=== PATIENT | male | born 1930 | race Caucasian/White ===

== ENCOUNTER 2017-11-07 11:41 | Emergency (ER) | payer MEDICARE ==
--- NOTE | 2017-11-07 12:06 | ED.PDOC ---
History of Present Illness - General Chief Complaint: Trauma Stated Complaint: left hip pain Time Seen by Provider: 11/07/17 12:02 Source: patient Exam Limitations: no limitations - History of Present Illness Timing/Duration: other - 11 days ago Improving Factors: immobilization Worsening Factors: movement Associated Symptoms: denies symptoms Allergies/Adverse Reactions: Allergies Phenobarbital Allergy (Verified 11/07/17 12:22) Review of Systems - Review of Systems Constitutional: States: no symptoms reported EENTM: Denies: nose congestion, throat pain Respiratory: Denies: cough, short of breath Cardiology: Denies: chest pain, edema Gastrointestinal/Abdominal: Denies: abdominal pain, nausea Genitourinary: Denies: dysuria, frequency Musculoskeletal: States: joint pain - L hip. Denies: back pain Skin: Denies: rash Neurological: Denies: headache, numbness, paresthesia, weakness Endocrine: Denies: no symptoms reported Hematologic/Lymphatic: Denies: no symptoms reported Family Medical History - Family History Mother Family History: Unknown Physical Exam - Physical Exam General Appearance: Alert, No apparent distress Eye Exam: bilateral normal Ears, Nose, Throat: hearing grossly normal, normal pharynx Neck: non-tender, full range of motion Respiratory: chest non-tender, lungs clear, normal breath sounds, no respiratory distress Cardiovascular/Chest: normal peripheral pulses, regular rate, rhythm, no edema Gastrointestinal/Abdominal: normal bowel sounds, non tender, soft Extremity: other - tender over L greater trochanter with decreased ROM, no leg shortening or malrotation Neurologic: no motor/sensory deficits, alert, normal mood/affect, oriented x 3 Skin Exam: normal color, warm/dry Lymphatic: no adenopathy Departure - Departure Clinical Impression: Fracture of greater trochanter of left femur Disposition: Discharge to Home or Self Care Departure Forms: ED Discharge - Pt. Copy, Patient Portal Self Enrollment Instructions: DI for Trauma Referrals: LEFTY GUILLORY [Primary Care Provider] - 1-2 Weeks
--- NOTE | 2017-11-07 12:40 | RAD ---
EXAM DESCRIPTION: Hip,Left 2 Views CLINICAL HISTORY: pain after fall COMPARISON: None FINDINGS: 2 views of the left hip. There is cortical disruption involving the superior aspect of the later greater trochanter. No full-thickness displaced hip fracture is demonstrated. Decreased bone mineralization is present suggesting osteopenia/osteoporosis. Formal acetabular impingement morphology. No advanced osteoarthrosis of the left hip. Injection granuloma noted. Visualized left pelvic ring is intact. IMPRESSION: Cortical disruption involving the superior aspect of the left greater trochanter. A nondisplaced left hip fractures not excluded. Consider noncontrast MRI favored over noncontrast CT for further characterization. Electronically signed by: Nehemias Mcmillan MD 11/07/2017 12:39 PM [facility]
--- NOTE | 2017-11-07 13:30 | CT ---
EXAM DESCRIPTION: Pelvis CLINICAL HISTORY: L hip pain COMPARISON: X-ray same date TECHNIQUE: Noncontrast transaxial CT images of the pelvis are obtained with coronal and sagittal reconstructed images. This exam was performed according to our departmental dose-optimization program, which includes automated exposure control, adjustment of the mA and/or kV according to patient size and/or use of iterative reconstruction technique . FINDINGS: As seen on recent x-ray, there is a mildly displaced mostly transverse fracture of the left greater trochanter. Fracture is mildly comminuted. Fracture does not obviously extend through the proximal femur to the lesser trochanter. There is soft tissue thickening and probable fluid in the left trochanteric bursa. There is moderate 1.9 cm calcification in the subcutaneous soft tissue lateral to the proximal left femur may represent sequela of remote prior trauma. No other fracture or dislocation is seen. Moderate joint space narrowing is seen in both hips with mild circumferential osteophytic ridging of the femoral heads. Moderate degenerative changes of the sacroiliac joints are seen with sclerosis of the lateral inferior aspect of the left SI joint. No sacral fracture. Pedicle screw and vertical kishore fixation at L4-5 with bony fusion is seen. Severe disc degenerative changes and mild facet arthropathy at L5-S1 is noted with foraminal encroachment. Moderate scattered colon diverticulosis without inflammatory changes. Small fat-containing left inguinal hernia is seen. Prostate is mildly enlarged measuring 3.5 x 4.4 cm. IMPRESSION: Mildly comminuted minimally displaced fracture of the left greater trochanter. Adjacent soft tissue swelling and probable fluid in the trochanteric bursa is seen. 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 Electronically signed by: Keshav Rivera MD 11/07/2017 1:30 PM [facility]
[2017-11-07 13:56] VITALS: BP 186/96; TEMP 98; O2SAT 97
== END 2017-11-07 13:55 | disposition home or self-care (01) ==
LOC: ER 11:41
DX: S72.112A Displaced fracture of greater trochanter of left femur, initial encounter for closed fracture (principal); X58.XXXA Exposure to other specified factors, initial encounter; Y92.9 Unspecified place or not applicable